=== PATIENT | female | born 1980 | race Caucasian/White ===

== ENCOUNTER 2022-01-05 08:58 | Outpatient (CLI) | payer BC, SELFPAY ==
--- NOTE | 2022-01-05 11:00 | CRLHL7_ITS ---
For Patients: As a result of the Century Cures Act, medical imaging exams and procedure reports are released immediately into your electronic medical record. You may view this report before your referring provider. If you have questions, please contact your health care provider. INDICATION: on Tamoxifen, vaginal spotting COMPARISON: none TECHNIQUE: 2D nichols scale and color Doppler images were acquired of the pelvis using a transabdominal and transvaginal approach. FINDINGS: Sonographic images demonstrate a normal size and smooth outer contour of the uterus. Uterus measures 8.5 cm in length by 3.6 cm in AP diameter by 4.4 cm in transverse dimension. The myometrium has a normal uniform echotexture. The endometrial lining measures 8 mm in composite thickness. Incidental cervical nabothian cyst is noted. The right ovary measures 3.1 x 2.0 x 1.4 cm in size and the left ovary measures 2.8 x 1.4 x 1.1 cm. The ovaries demonstrate normal arterial and venous blood flow on color Doppler analysis. There are no suspicious fluid collections within the cul-de-sac. IMPRESSION: Endometrial thickness 8 millimeters. Dictated by Nicolás Farmer MD @ 01/05/2022 11:24:00 AM (Electronically Signed)
== END 2022-01-05 08:59 | disposition home or self-care (01) ==
PROVIDERS: PCP Family Medicine; Visit Provider Internal Medicine Hematology & Oncology
DX: N93.9 Abnormal uterine and vaginal bleeding, unspecified (principal); R93.89 Abnormal findings on diagnostic imaging of other specified body structures
CPT/HCPCS: 76830; 76856

== ENCOUNTER 2022-03-31 14:30 | Outpatient (RCR) | payer BC, SELFPAY ==
--- NOTE | 2021-12-30 10:08 | URNOTE ---
Received request for prior auth for Goserelin ([id number]). Per [facility] on behalf of [employer] [place], this has been approved 12/30/2021-08/28/2022 Approval #[id number]
[2022-01-05 09:12] VITALS: BP 120/80; PULSE 99; RESP 6; TEMP 36.6; O2SAT 97
[2022-01-05] MEDS: GOSERELIN ACETATE 3.6 MG IMPLANT SUBCUT (09:15)
--- NOTE | 2022-01-05 14:35 | ONC.NURNOTE ---
[employer] Note Reviewed pelvic US report with pt and that Dr. Hawthorne will review when next in office 01/13; impression includes endometrial thickness 8mm. Pt notes last time she had vaginal spotting was last week; she is having cramping and feels like she's about to have her menses daily over the last several weeks. Pt continues Tamoxifen for 1 more month, then switches to Exemestane; received first dose of Zoladex today and tolerated well.
[2022-02-02 13:48] VITALS: BP 123/84; PULSE 95; RESP 16; TEMP 36.3; O2SAT 97
[2022-02-02] MEDS: GOSERELIN ACETATE 3.6 MG IMPLANT SUBCUT (14:03)
--- NOTE | 2022-03-16 12:05 | ONC.NURNOTE ---
It was noted that patient was no show for last injection, LMOM for her to call and let us know if she is getting this elsewhere.
== END 2022-06-21 23:59 | disposition home or self-care (01) ==
LOC: CCIC 14:30
PROVIDERS: PCP Family Medicine; Referring Provider Family Medicine; Visit Provider Internal Medicine Hematology & Oncology
DX: C50.912 Malignant neoplasm of unspecified site of left female breast (principal)
CPT/HCPCS: 96401; 99212; 99214; 99215; J9202